=== PATIENT | female | born 1930 | race Caucasian/White ===

== ENCOUNTER 2017-05-30 11:45 | Outpatient (CLI) | payer MEDICARE, MEDICAID | END 2017-05-30 11:46 | disposition home or self-care (01) | LOC: BICRAD 11:45 | PROVIDERS: ATTEND Internal Medicine | DX: M54.9 Dorsalgia, unspecified (principal); M47.897 Other spondylosis, lumbosacral region; G89.29 Other chronic pain; M47.896 Other spondylosis, lumbar region; M41.9 Scoliosis, unspecified; M47.898 Other spondylosis, sacral and sacrococcygeal region; M16.0 Bilateral primary osteoarthritis of hip | CPT/HCPCS: 72100 ==

== ENCOUNTER 2017-06-27 10:10 | Outpatient (CLI) | payer MEDICARE, MEDICAID ==
--- NOTE | 2017-06-27 11:55 | RAD ---
RIGHT HIP TWO VIEWS: History: 87-year-old female with history of right hip pain that extends down to the ankle. History of arthriti s. FINDINGS: Severe right hip joint degenerative and osteoarthrosis changes with marked hip joint space loss and h ypertrophic osteophytosis and some subchondral cystic changes. No evidence for acute hip fracture. IMPRESSION: No evidence for acute hip fracture. Severe right hip joint arthrosis. POS: BRIANNA
== END 2017-06-27 10:11 | disposition home or self-care (01) ==
LOC: TBSIIMAG 10:10
PROVIDERS: ATTEND Neurological Surgery
DX: M25.551 Pain in right hip (principal); M16.11 Unilateral primary osteoarthritis, right hip

== ENCOUNTER 2018-06-22 13:04 | Outpatient (CLI) | payer MEDICARE, MEDICAID ==
--- NOTE | 2018-06-23 10:37 | CT ---
CT LUMBAR SPINE PERFORMED WITHOUT CONTRAST ENHANCEMENT: Date: 06/22/18 HISTORY: Back pain with right-sided radicular symptoms. COMPARISON: None. FINDINGS: The vertebral bodies maintain normal height. There is degenerative disc narrowing at L3-4. There is s ome minimal retrolisthesis of L5 on S1. There are moderate degenerative facet changes seen along the course of the spine. There is no significant periaortic adenopathy. The gallbladder is partially visualized. There is some subtle increased attenuation which could indicate some small stones. Visualized kidneys are normal. T12-L1: Degenerative facet changes without canal or foraminal stenosis. L1-2: Degenerative facet changes without significant canal or foraminal stenosis. L2-3: Disc bulge and facet and ligamentous hypertrophic changes cause a moderate degree of canal elizabeth nosis at this level. L3-4: There is a more severe canal stenosis at this level with degenerative facet and ligamentous hy pertrophic changes and disc bulging. L4-5: Disc bulge and facet and ligamentous hypertrophic change show a moderately severe canal stenos is, slightly less pronounced than the L3-4 level. Mild right-sided foraminal narrowing is seen. L5-S1: No significant canal or foraminal stenosis appreciated at this level. IMPRESSION: Severe canal stenosis at L3-4, also fairly pronounced stenosis at the L4-5 level. Other findings as n oted above. POS: C
== END 2018-06-22 13:05 | disposition home or self-care (01) ==
LOC: BICCT 13:04
PROVIDERS: ATTEND Specialist
DX: M51.16 Intervertebral disc disorders with radiculopathy, lumbar region (principal); M47.26 Other spondylosis with radiculopathy, lumbar region; M48.061 Spinal stenosis, lumbar region without neurogenic claudication; M47.815 Spondylosis without myelopathy or radiculopathy, thoracolumbar region; M43.17 Spondylolisthesis, lumbosacral region
CPT/HCPCS: 72131

== ENCOUNTER 2018-08-16 08:30 | Inpatient (IN) | payer MEDICARE, MEDICAID ==
[2018-08-16 08:58] VITALS: BMI 23.7
[2018-08-28] MEDS ORDERED: Sodium Chloride 0.9% 100 ML ONE (06:51)
[2018-08-28] MEDS ORDERED: Tranexamic Acid 1,000 MG/10 ML VIAL ONE (06:51)
[2018-08-28] MEDS ORDERED: Fentanyl 100 MCG/2 ML VIAL ONE (07:47)
[2018-08-28] MEDS ORDERED: Acetaminophen 500 MG TAB PO PRN (08:05)
[2018-08-28] MEDS ORDERED: fentaNYL Citrate/PF 500 MCG, Bupivacaine 10 ML in Sodium Chloride 0.9% 80 ML EPIDURAL SCH (08:15)
[2018-08-28] MEDS ORDERED: diphenhydrAMINE 50 MG/ML VIAL IVP PRN (08:15)
[2018-08-28] MEDS ORDERED: traMADol HCl 50 MG TAB PO PRN ×2 (08:15)
[2018-08-28] MEDS ORDERED: Naloxone HCl 0.4 mg/ml Vial IVP PRN (08:15)
[2018-08-28] MEDS ORDERED: diphenhydrAMINE 25 MG CAP PO PRN ×2 (08:15→09:06)
[2018-08-28] MEDS ORDERED: Naloxone HCl 0.4 mg/ml Vial IV PRN (08:15)
[2018-08-28] MEDS ORDERED: Bupivacaine 0.25% 10 ML VIAL EPIDURAL PRN (08:15)
[2018-08-28] MEDS ORDERED: Promethazine HCl 25 MG SUPP PR PRN (08:15)
[2018-08-28] MEDS ORDERED: diphenhydrAMINE 50 MG/ML VIAL IM PRN (08:15)
[2018-08-28] MEDS ORDERED: Ondansetron PF 4 MG/2 ML Vial IVP PRN ×2 (08:15→09:06)
[2018-08-28] MEDS ORDERED: Zolpidem Tartrate 5 MG TAB PO PRN ×2 (08:15→09:06)
[2018-08-28] MEDS ORDERED: Hydrocerin (Eucerin) Cream 120 gm Jar TOP PRN (08:15)
[2018-08-28] MEDS ORDERED: HYDROcodone/Acetaminophen 5/325 mg Tablet PO PRN (08:15)
[2018-08-28] MEDS ORDERED: Promethazine HCl 25 MG/ML VIAL IM PRN ×3 (08:15→10:32)
[2018-08-28] MEDS ORDERED: HYDROcodone/Acetaminophen 10/325 mg Tablet PO PRN (09:06)
[2018-08-28] MEDS ORDERED: Acetaminophen 325 MG TAB PO PRN (09:06)
[2018-08-28] MEDS ORDERED: Fentanyl 100 MCG/2 ML VIAL SLOW IVP PRN (09:06)
[2018-08-28] MEDS ORDERED: Acetaminophen/Codeine 30-300mg Tablet PO PRN (09:08)
[2018-08-28] MEDS ORDERED: Promethazine HCl 25 MG/ML VIAL SLOW IVP PRN (10:32)
[2018-08-28] MEDS ORDERED: Ondansetron HCl/PF 4 MG/2 ML Vial IVP PRN (10:32)
--- NOTE | 2018-08-28 11:55 | RAD ---
XR Hip Rt 2-3 View History: Hip replacement Comparison: Radiograph June 27, 2017 Findings: Satisfactory appearance right hip arthroplasty. Expected postoperative gas and edema. Impression: Satisfactory postoperative appearance.
[2018-08-28] MEDS ORDERED: Ketorolac Tromethamine 30 MG/ML VIAL IVP SCH (12:00)
[2018-08-28] MEDS ORDERED: ePHEDrine/0.9% NaCl/PF SYRINGE 50 mg/10 ml ONE (12:04)
--- NOTE | 2018-08-28 12:54 | OP ---
DATE OF PROCEDURE: 08/28/2018 PREOPERATIVE DIAGNOSIS: End-stage bicompartmental osteoarthritis, right hip. POSTOPERATIVE DIAGNOSIS: End-stage bicompartmental osteoarthritis, right hip. OPERATIVE PROCEDURE: Press-fit right total hip arthroplasty. SURGEON: Manjit Owusu MD [employer] SCIENTIST: Warren Heck PA-C ANESTHESIA: General via endotracheal tube augmented with indwelling epidural. COMPONENTS USE: [employer] Accolade II size 5 press-fit hip stem with a Tritanium 52 mm press-fit cluster acetabular shell, 0 degree polyethylene fixed bearing insert and -2.5 neck length ceramic femoral head 36 mm diameter. FINDINGS: End-stage severe degenerative bicompartmental disease, [id number] arthrosis, periarticular osteophyte formation, large serous effusion, and hypertrophic synovium. DRAINS: None. SPECIMENS: None. COMPLICATIONS: None. ESTIMATED BLOOD LOSS: 200 mL. INPUT: 1 L crystalloid. OUTPUT: 200 mL clear yellow urine. INDICATION FOR PROCEDURE: Patricia is an 88-year-old white female, who has had progressive right hip, groin, and thigh pain and problems with standing or walking for the last 10 to 12 years. She has failed conservative management, elected to proceed with total hip arthroplasty as definitive treatment for pain. PROCEDURE IN DETAIL: After informed consent was obtained in the preoperative holding area, the patient was taken to the operative suite where general anesthesia was induced. The patient was then positioned in the lateral decubitus position. The hip was then prepped and draped in usual sterile fashion. The patient received preoperative antibiotics. Prior to incision, time-out was called and all members of the surgical team agreed upon site, surgeon, and patient. After this, a longitudinal incision was made directly over the trochanter, noted by palpation extending 2 fingerbreadths above and below the trochanter. The deeper subcutaneous layer was undermined with Bovie electrocautery. The iliotibial band was encountered and incised sharply and the plane below this was developed bluntly. A Charnley retractor was placed to hold this opened. The lateral aspect of the trochanter and the abductor muscles were encountered and then reflected anteriorly off the trochanter using Bovie electrocautery. Once this was completed, the anterior capsule was then encountered and identified and copious capsulotomy was carried out, exposing the femoral neck and head. Dislocation maneuver was then performed and an in situ provisional neck cut was then made using the oscillating saw. Attention was then turned to acetabular preparation. Sequential reaming was carried out up to the appropriate diameter and a trial was then malleted into place with good firm resistance and no pullout. The permanent acetabular shell was then malleted squarely into place, as was the appropriate liner. Once completed, the wound was copiously irrigated and attention was then turned to femoral preparation. Flexion and external rotation were performed of the exposed thigh and femoral elevators were then placed at the proximal aspect of the wound. Canal finder was used to establish the length of the canal and sequential reaming was carried out, followed by broaching. Once the appropriate stability was established with the trial broaches with flexion, extension and rotational stability, we did trial with neutral and 2 mm offset incremental necks. Once the appropriate size was decided upon, with good stability noted with flexion, extension, internal and external rotation and shuck being negative, we removed the femoral trial broach and malleted into place the permanent prosthesis with good firm fit, which was also stable to rotation. Again, the hip felt very stable to flexion, extension, internal and external rotation. Leg lengths appeared near anatomic clinically and we were quite happy with prosthesis placement. Copious irrigation was then carried out through the entirety of the wound. Primary closure of the abductors was accomplished with interrupted #2 Vicryl [id number] stitches and the IT band was then closed with interrupted #2 Vicryl, oversewn with a #2 running barbed Quill stitch. Subcutaneous fascia was closed with running barbed Quill stitch and a subcuticular Monocryl barbed Quill stitch was used for skin closure and augmented with skin cement. A sterile dressing was applied. The procedure was terminated without any complication. All counts were correct. The patient was awakened in the operative suite and taken to the recovery room in stable condition. Dictated by Warren Heck PA-C, for Manjit Owusu MD. Job ID: [id number]
[2018-08-28] MEDS: Sodium Chloride 0.9% 1,000 ML IV SCH ×2 (14:27→22:03)
[2018-08-28] MEDS: Ketorolac Tromethamine 30 MG/ML VIAL IVP SCH ×2 (15:20→22:05)
[2018-08-28] MEDS: CEFAZOLIN 2 GM in Premix Bag 1 BAG IVPB SCH ×2 (15:20→23:00)
[2018-08-28] MEDS: Carvedilol 6.25 MG TAB PO SCH (20:38)
[2018-08-28] MEDS: Atorvastatin Calcium 10 MG TAB PO SCH (20:38)
[2018-08-28] MEDS: Aspirin 81 mg Enteric Coated Tablet PO SCH (20:39)
[2018-08-28] MEDS: Gabapentin 300 MG CAP PO SCH (20:39)
[2018-08-29] MEDS: Ketorolac Tromethamine 30 MG/ML VIAL IVP SCH ×4 (03:58→21:43)
[2018-08-29 05:14] LABS: Hemoglobin 10.2 g/dL (12.0-16.0); Mean Corpuscular HGB CONC 32.9 g/dL (32.0-36.0); Mean Corpuscular Hemoglobin 30.8 pg (27.0-31.0); Mean Corpuscular Volume 93.5 fL (78.0-98.0); Mean Platelet Volume 9.4 fL (7.4-10.4); Platelet Count 113 thou/uL (130-400); RBC Distribution Width 11.9 % (11.5-14.5); Red Blood Cell (RBC) Count 3.31 mill/uL (4.20-5.40); White Blood Cell (WBC) Count 7.7 thou/uL (4.8-10.8)
[2018-08-29] MEDS: Sodium Chloride 0.9% 1,000 ML IV SCH ×2 (06:17→17:08)
[2018-08-29] MEDS: Aspirin 81 mg Enteric Coated Tablet PO SCH ×2 (08:13→20:00)
[2018-08-29] MEDS: Senokot S 8.6-50 MG TAB PO SCH ×2 (08:13→20:04)
[2018-08-29] MEDS: Carvedilol 6.25 MG TAB PO SCH ×2 (08:14→20:07)
[2018-08-29] MEDS: Multivitamin W/ Minerals 1 TAB PO SCH (08:14)
[2018-08-29] MEDS: Fish Oil 1,000 MG CAP PO SCH (08:14)
[2018-08-29] MEDS: Ubidecarenone 50 MG CAP PO SCH (08:15)
[2018-08-29] MEDS: Amlodipine 10 MG TAB PO SCH (08:15)
[2018-08-29] MEDS: Ferrous Gluconate 324 MG TAB PO SCH ×2 (08:16→20:04)
--- NOTE | 2018-08-29 08:45 | PRG ---
DATE OF SERVICE: 08/29/2018 SUBJECTIVE: Patricia is an 88-year-old white female, postop day #1 right total hip arthroplasty. She is doing well. Pain is controlled. She is able to ambulate 20 to 30 feet yesterday evening in a full weightbearing fashion with a walker. OBJECTIVE: VITAL SIGNS: Temperature 98.3, pulse 95, respiratory rate 14, and blood pressure 112/68. GENERAL: She is alert, oriented, responsive, and appropriate with examiner, grossly nonfocal. SKIN: Her incision is clean and closed without erythema. EXTREMITIES: There is no malrotation or shortening of the extremity. LABORATORY DATA: Hemoglobin and hematocrit of 10.2 and 30.9. IMPRESSION: 1. This is an 88-year-old female, postop day #1 right total hip arthroplasty. 2. Anemia. PLAN: Continue current care. Discharge/transfer to skilled versus rehab on Monday. Job ID: [id number]
[2018-08-29] MEDS ORDERED: Aspirin 81 mg Enteric Coated Tablet PO SCH (09:00)
[2018-08-29] MEDS: fentaNYL Citrate/PF 500 MCG, Bupivacaine 10 ML in Sodium Chloride 0.9% 80 ML EPIDURAL SCH (14:19)
[2018-08-29] MEDS: Atorvastatin Calcium 10 MG TAB PO SCH (20:00)
[2018-08-29] MEDS: Gabapentin 300 MG CAP PO SCH (20:04)
[2018-08-30] MEDS: Sodium Chloride 0.9% 1,000 ML IV SCH ×3 (01:52→21:10)
[2018-08-30] MEDS: Ketorolac Tromethamine 30 MG/ML VIAL IVP SCH ×2 (03:51→16:29)
[2018-08-30 06:28] LABS: Hemoglobin 9.8 g/dL (12.0-16.0); Mean Corpuscular HGB CONC 32.1 g/dL (32.0-36.0); Mean Corpuscular Hemoglobin 30.2 pg (27.0-31.0); Mean Corpuscular Volume 94.1 fL (78.0-98.0); Mean Platelet Volume 9.7 fL (7.4-10.4); Platelet Count 103 thou/uL (130-400); RBC Distribution Width 11.9 % (11.5-14.5); Red Blood Cell (RBC) Count 3.24 mill/uL (4.20-5.40); White Blood Cell (WBC) Count 8.8 thou/uL (4.8-10.8)
[2018-08-30] MEDS: Ferrous Gluconate 324 MG TAB PO SCH ×2 (08:14→20:46)
[2018-08-30] MEDS: Multivitamin W/ Minerals 1 TAB PO SCH (08:14)
[2018-08-30] MEDS: Fish Oil 1,000 MG CAP PO SCH (08:14)
[2018-08-30] MEDS: Ubidecarenone 50 MG CAP PO SCH (08:16)
[2018-08-30] MEDS: Aspirin 81 mg Enteric Coated Tablet PO SCH ×2 (08:17→20:46)
[2018-08-30] MEDS: Senokot S 8.6-50 MG TAB PO SCH ×2 (08:17→20:46)
--- NOTE | 2018-08-30 09:30 | PRG ---
DATE OF SERVICE: 08/30/2018 SUBJECTIVE: Patricia is an 88-year-old white female, postop day 2 from a right total hip arthroplasty. She is doing relatively well. She has no complaints today and I believe her transfer status is pending. OBJECTIVE: VITAL SIGNS: Temperature 99.2; pulse 84; respiratory rate 12, nonlabored; and blood pressure is 109/61. NEUROLOGIC: She is alert and oriented to person, place, time, and situation. Grossly nonfocal. Responsive and appropriate with the examiner. Her incision is clean. No strike through was noted. There is no shortening or malrotation of the right lower extremity. LABORATORY DATA: Hemoglobin and hematocrit are 9.8 and 30.5. IMPRESSION: 1. An 88-year-old female on postop day 2, right total hip arthroplasty. 2. Anemia. PLAN: Continue current care. Transfer to either skilled facility or inpatient rehab tomorrow. Job ID: [id number]
[2018-08-30] MEDS: fentaNYL Citrate/PF 500 MCG, Bupivacaine 10 ML in Sodium Chloride 0.9% 80 ML EPIDURAL SCH (12:09)
[2018-08-30] MEDS: HYDROcodone/Acetaminophen 5/325 mg Tablet PO PRN ×2 (14:59→19:04)
[2018-08-30] MEDS: Amlodipine 10 MG TAB PO SCH (16:28)
[2018-08-30] MEDS: Carvedilol 6.25 MG TAB PO SCH ×2 (16:28→20:47)
[2018-08-30] MEDS: Gabapentin 300 MG CAP PO SCH (20:46)
[2018-08-30] MEDS: Atorvastatin Calcium 10 MG TAB PO SCH (20:47)
[2018-08-31 08:06] VITALS: TEMP 98.8
--- NOTE | 2018-08-31 08:57 | CON ---
DATE OF CONSULTATION: 08/28/2018 REASON FOR CONSULT: Manage medical problems. CONSULTING PHYSICIAN: Manuelito Castle MD HISTORY OF PRESENT ILLNESS: Ms. Jack Gomez is an 88-year-old female with past medical history of hypertension and hyperlipidemia, who was admitted for total hip arthroplasty right side because of severe DJD and pain. The patient underwent surgery and postoperatively, she is doing well. She did not have any chest pain or shortness of breath. No fever. No cough. PAST MEDICAL HISTORY: The patient's past medical include hypertension and hyperlipidemia. PAST SURGICAL HISTORY: Nothing significant. CURRENT MEDICATIONS: The patient is on; 1. Amlodipine 5 mg daily. 2. Lipitor 10 mg daily. 3. Carvedilol 6.25 b.i.d. 4. Vitamin D 5000 units daily. 5. Coenzyme daily. 6. Gabapentin 600 at bedtime ALLERGIES: THE PATIENT HAS NO ALLERGIES. FAMILY HISTORY: Nothing contributory. SOCIAL HISTORY: The patient lives with son. No history of smoking. No history of alcohol intake. REVIEW OF SYSTEMS: Unremarkable. PHYSICAL EXAMINATION: GENERAL: The patient is alert, awake, and oriented x3. VITAL SIGNS: Temperature 98, pulse 86, respirations 20, and blood pressure 100/ 60. HEENT: Head is normocephalic and atraumatic. Pupils are equal and reactive. Nasopharynx is pale and dry. Hard and soft palate. No lesions. SKIN: Turgor decreased. NECK: Supple. No JVD. LUNGS: Bilateral air entry present. No rales. No rhonchi. HEART: S1 and S2. Regular. ABDOMEN: Soft. No distention. No tenderness. Normal bowel sounds present. RECTAL: Deferred. CENTRAL NERVOUS SYSTEM: No focal deficit. EXTREMITIES: Right hip is tender on exam. LABORATORY DATA: CBC shows WBC 8, hemoglobin 9.8, hematocrit 30, and platelets 103. Metabolic panel not done. Hip x-ray shows right hip arthroplasty. ASSESSMENT: 1. Hypertension. 2. Hyperlipidemia. 3. Severe degenerative joint disease status post right hip total arthroplasty. PLAN: Continue her home medications. We will thank you very much for the consult. We will follow. Job ID: [id number] [facility]
[2018-08-31] MEDS: Sodium Chloride 0.9% 1,000 ML IV SCH (09:04)
[2018-08-31] MEDS: Ubidecarenone 50 MG CAP PO SCH (09:05)
[2018-08-31] MEDS: Multivitamin W/ Minerals 1 TAB PO SCH (09:05)
[2018-08-31] MEDS: Senokot S 8.6-50 MG TAB PO SCH (09:05)
[2018-08-31] MEDS: Ferrous Gluconate 324 MG TAB PO SCH (09:06)
[2018-08-31] MEDS: Aspirin 81 mg Enteric Coated Tablet PO SCH (09:06)
[2018-08-31] MEDS: Fish Oil 1,000 MG CAP PO SCH (09:06)
[2018-08-31] MEDS: Amlodipine 10 MG TAB PO SCH (09:06)
[2018-08-31] MEDS: Carvedilol 6.25 MG TAB PO SCH (09:06)
[2018-08-31 11:54] VITALS: BP 109/57
== END 2018-08-31 12:00 | DRG 470 ==
LOC: SJJU 08-28 06:30
PROVIDERS: ADMIT Orthopaedic Surgery; ATTEND Orthopaedic Surgery
PROC: 0SR904A Replacement of Right Hip Joint with Ceramic on Polyethylene Synthetic Substitute, Uncemented, Open Approach (ICD-10-PCS; principal; 2018-08-28)
DX: M16.11 Unilateral primary osteoarthritis, right hip (principal); D64.9 Anemia, unspecified; I10 Essential (primary) hypertension; E78.5 Hyperlipidemia, unspecified; Z79.899 Other long term (current) drug therapy
CPT/HCPCS: 36415; 85027; J0690; J1885; J3010; J3370; J3490

== ENCOUNTER 2018-08-16 08:36 | Outpatient (CLI) | payer MEDICARE, MEDICAID ==
[2018-08-16 11:03] LABS: Bilirubin Negative (Negative); Blood, Urine Negative (Negative); Clarity CLEAR (Clear); Glucose, Urine (Dipstick) Negative (Negative); Leukocyte Trace (Negative); Nitrite Negative (Negative); Protein, Urine (Dipstick) Negative (Neg-Trace); Specific Gravity, Urine 1.004 (1.002-1.036); Urobilinogen 0.2 mg/dL (0.2-1.0)
[2018-08-16 11:05] LABS: Bacteria/HPF None Seen HPF (None Seen); Hyaline Casts/LPF 0-3 HYALINE CAST LPF (0-3 Hyaline); RBC/HPF 0-3 HPF (0-3); Squamous Epithelial None Seen HPF (0-3); WBC/HPF None Seen HPF (0-3)
[2018-08-16 11:13] LABS: #Basophils 0.1 thou/uL (0.0-0.2); #Eosinphils 0.4 thou/uL (0.0-0.7); #Lymphocytes 1.9 thou/uL (1.20-3.40); #Monocytes 0.7 thou/uL (0.11-0.59); #Neutrophils 3.5 thou/uL (1.40-6.50); %Eosinophils 5.7 % (0.0-10.0); %Lymphocytes 29.5 % (21.0-51.0); %Neutrophils 53.8 % (42.0-75.0); Mean Corpuscular HGB CONC 32.2 g/dL (32.0-36.0); Mean Corpuscular Hemoglobin 29.7 pg (27.0-31.0); Mean Corpuscular Volume 92.2 fL (78.0-98.0); Mean Platelet Volume 9.4 fL (7.4-10.4); Platelet Count 154 thou/uL (130-400); Prothrombin Time 13.2 SEC (12.0-14.7); RBC Distribution Width 12.3 % (11.5-14.5); Red Blood Cell (RBC) Count 4.71 mill/uL (4.20-5.40); White Blood Cell (WBC) Count 6.6 thou/uL (4.8-10.8)
[2018-08-16 11:39] LABS: Anion Gap 15 mmol/L (10-20); BUN (Urea Nitrogen) 11 mg/dL (9.8-20.1); Calc. Creatinine Clearance 0 mL/min (70-130); Calcium 9.8 mg/dL (7.8-10.44); Carbon Dioxide 25 mmol/L (23-31); Chloride 105 mmol/L (98-107); Estimated GFR-MDRD 65; Glucose 93 mg/dL (83-110); Potassium 4.2 mmol/L (3.5-5.1); Sodium 141 mmol/L (136-145)
== END 2018-08-16 08:37 | disposition home or self-care (01) ==
LOC: LABBT 08:36
PROVIDERS: ATTEND Orthopaedic Surgery
DX: Z01.818 Encounter for other preprocedural examination (principal); M16.11 Unilateral primary osteoarthritis, right hip
CPT/HCPCS: 80048; 81001; 85025; 85610; 87081; 93005; 93010

== ENCOUNTER 2018-08-21 16:22 | Outpatient (CLI) | payer MEDICARE, MEDICAID ==
--- NOTE | 2018-08-21 16:41 | RAD ---
EXAM: CHEST TWO VIEWS: 08/21/18 HISTORY: Preoperative evaluation. FINDINGS: Left ICD. There is rotation to the right. Biapical pleural thickening. Arthrosis changes of both shou lders. No confluent pneumonia, overt edema, or pleural effusion. Old granulomatous disease. IMPRESSION: No significant acute intrathoracic disease. Stable from prior study. Left ICD. POS: [facility]
== END 2018-08-21 16:23 | disposition home or self-care (01) ==
LOC: RAD-FRANK 16:22
PROVIDERS: ATTEND Internal Medicine
DX: Z01.818 Encounter for other preprocedural examination (principal); Z95.810 Presence of automatic (implantable) cardiac defibrillator
CPT/HCPCS: 71046

== ENCOUNTER 2019-05-28 07:57 | Outpatient (CLI) | payer MEDICARE, MEDICAID ==
--- NOTE | 2019-05-28 09:01 | CT ---
EXAM: CT Chest W Con PROVIDED CLINICAL HISTORY: Neck mass, supraclavicular fossa fullness COMPARISON: None FINDINGS: There is an enlarged and heterogeneous appearance to the left lobe of the thyroid gland. The right th yroid lobe is not visualized. Left subclavian cardiac pacing device is noted with tips in RA and RV. Vascular calcification includi ng coronary calcium is demonstrated. The heart, pericardium and great vessels appear otherwise unremarkable. No evidence for thoracic lymph node enlargement. Specifically, no evidence for supraclavicular adenop athy. The lungs are free of significant opacity. The airway appears patent and of normal caliber. No pleura l fluid or pneumothorax apparent. The visualized portions of the upper abdomen appear unremarkable. The osseous structures demonstrate no concerning lytic or blastic lesions. Advanced glenohumeral dege nerative changes are seen. IMPRESSION: Enlarged and heterogeneous left thyroid lobe. No evidence for an acute process.
[2019-05-28] MEDS ORDERED: Iopamidol 370 76% 100 ML VIAL ONE (09:59)
--- NOTE | 2019-05-28 10:57 | CT ---
CT NECK WITH CONTRAST: Multiplanar reconstruction with IV enhancement. INDICATION: Supraclavicular fullness on the left noted by the patient. COMPARISON: Comparison is made to a neck CT of 09/23/2005. FINDINGS: The parotid glands appear normal and symmetric. Submandibular glands appear unremarkable and symmetr ic. This patient is post right thyroid lobectomy. The left lobe of the thyroid is enlarged and heterogen eous and has a similar appearance to the exam of 2006. Nasopharynx unremarkable. Base of tongue and the oropharynx appear unremarkable. Waldeyer's ring is symmetric with both palati ne tonsils slightly prominent for age. Review of the hypopharynx reveals effacement of the left piriform sinus. There is enhancing mucosa s urrounding the left piriform sinus and this should be further evaluated with direct evaluation by ENT . Larynx appears unremarkable. The parapharyngeal space and retropharyngeal space unremarkable. There is a large osteophyte project ing from the C2 vertebra anteriorly which does abut the posterior pharynx at the upper hypopharynx re gion. The retropharyngeal space is otherwise unremarkable. Care Transition Coordinator space unremarkable. The carotid space shows calcification in both carotid bulbs and proximal ICAs. There appears to be s ignificant stenosis involving the proximal internal carotid arteries due to this calcified plaque. C orrelate with carotid Doppler exam. Stenosis appears slightly more pronounced in the left internal c arotid artery. This may be difficult to evaluate on Doppler due to the dense calcification and angio gram study may be necessary. Review of lymph node levels shows nonspecific submandibular nodes which are sub-centimeter. The level II jugulodigastric nodes appear nonspecific bilaterally. There are numerous level II nodes present, the largest on the right measuring up to 1 cm. No significant level III or IV nodes identified. No posterior triangle/level V adenopathy. Paranasal sinuses and mastoids are clear. No soft tissue mass seen in the left supraclavicular or infraclavicular region. No abnormal mass see n at the sternoclavicular joint. The left lobe of the thyroid is prominent but is stable from prior exam as noted above. IMPRESSION: 1. Asymmetric effacement of the left piriform sinus with mucosal enhancement surrounding this pirifo rm sinus in the hypopharynx on the left. Recommend direct ENT evaluation to rule out mucosal lesion at this site. 2. Enlarged heterogeneous left lobe of thyroid. This is stable from prior exam. 3. No evidence of mass or adenopathy. No evidence of mass in the left supraclavicular region. 4. Carotid artery calcification. POS: [facility]
== END 2019-05-28 07:58 | disposition home or self-care (01) ==
LOC: CT 07:57
DX: R22.1 Localized swelling, mass and lump, neck (principal); R22.2 Localized swelling, mass and lump, trunk; E04.9 Nontoxic goiter, unspecified; I65.23 Occlusion and stenosis of bilateral carotid arteries
CPT/HCPCS: 70491; 71260; 82565; Q9967

== ENCOUNTER 2021-01-07 12:28 | Outpatient (CLI) | payer MEDICARE, MEDICAID | END 2021-01-07 12:29 | disposition home or self-care (01) | LOC: BICCT 12:28 | PROVIDERS: ATTEND Nurse Practitioner Family | DX: Z23 Encounter for immunization (principal); I10 Essential (primary) hypertension; E78.5 Hyperlipidemia, unspecified; R51.9 Headache, unspecified; M47.816 Spondylosis without myelopathy or radiculopathy, lumbar region; E55.9 Vitamin D deficiency, unspecified; Z98.890 Other specified postprocedural states; Z95.0 Presence of cardiac pacemaker; M15.0 Primary generalized (osteo)arthritis | CPT/HCPCS: 70450 ==

== ENCOUNTER 2021-03-10 11:52 | Outpatient (CLI) | payer MEDICARE, MEDICAID | END 2021-03-10 11:53 | disposition home or self-care (01) | LOC: BICRAD 11:52 | PROVIDERS: ATTEND Nurse Practitioner Family | DX: M25.572 Pain in left ankle and joints of left foot (principal); M72.2 Plantar fascial fibromatosis; M19.072 Primary osteoarthritis, left ankle and foot ==

== ENCOUNTER 2021-05-06 09:01 | Outpatient (CLI) | payer MEDICARE, MEDICAID | END 2021-05-06 09:02 | disposition home or self-care (01) | LOC: BICMAMMO 09:01 | PROVIDERS: ATTEND Nurse Practitioner Family | DX: Z13.820 Encounter for screening for osteoporosis (principal); E55.9 Vitamin D deficiency, unspecified; M47.816 Spondylosis without myelopathy or radiculopathy, lumbar region; M15.0 Primary generalized (osteo)arthritis; M85.852 Other specified disorders of bone density and structure, left thigh | CPT/HCPCS: 77080 ==

== ENCOUNTER 2022-01-26 16:21 | Outpatient (CLI) | payer MEDICARE, MEDICAID | END 2022-01-26 16:22 | disposition home or self-care (01) | LOC: BICRAD 16:21 | PROVIDERS: ATTEND Nurse Practitioner Family | DX: M25.551 Pain in right hip (principal); M54.50 Low back pain, unspecified; M47.816 Spondylosis without myelopathy or radiculopathy, lumbar region | CPT/HCPCS: 72100 ==